=== PATIENT | female | born 1985 | race Caucasian/White ===

== ENCOUNTER 2017-03-06 13:49 | Emergency (ER) | payer OTHER | END 2017-03-06 16:45 | disposition home or self-care (01) | LOC: ER1 13:49 | DX: S39.012A Strain of muscle, fascia and tendon of lower back, initial encounter (principal); V43.52XA Car driver injured in collision with other type car in traffic accident, initial encounter; Y93.89 Activity, other specified; Y92.410 Unspecified street and highway as the place of occurrence of the external cause | CPT/HCPCS: 72131; 84703; 99284 ==